=== PATIENT | female | born 2000 | race Caucasian/White ===

== ENCOUNTER 2025-02-03 08:42 | Emergency (ER) | payer OTHER, SELFPAY ==
[2025-02-03 08:45] VITALS: BP 152/88; PULSE 87; TEMP 37.1; O2SAT 98; BMI 38.3
--- NOTE | 2025-02-03 09:16 | ED.GENADUL1 ---
HPI HPI - General Adult General Chief complaint: Epistaxis Stated complaint: EAR PAIN Time Seen by Provider: 02/03/25 08:50 Source: patient Mode of arrival: ambulance Limitations: no limitations History of Present Illness HPI narrative: Patient is a 24-year-old female presenting to the emergency department via EMS for concerns of bleeding from the right ear. Patient states that over the last 3 days, she has been having increasing pain in the right ear and believes that she has an ear infection. She has been using Q-tips repeatedly, and noted bleeding just prior to arrival. She denies any loss of hearing, just notes moderate pain. She states she has no dizziness, nausea, vomiting, or vertigo. No changes in her vision, taste, or other systemic symptoms. No fevers or chills. She has not been on antibiotics recently. No history of trauma. Related Data Previous Rx's ?Medication ?Instructions ?Recorded amoxicillin 875 mg tablet 875 mg PO BID 5 days #10 tabs 02/03/25 Allergies Allergy/AdvReac Type Severity Reaction Status Date / Time No Known Drug Allergies Allergy Verified 02/03/25 08:50 Opioid HPI Opioid Management Most Recent Opioid Data: Last Pain Scale 4 Today, 08:45 Review of Systems ROS Status of ROS 10 or more systems reviewed and unremarkable except as noted in history and below PFSH PFSH Social History Little interest or pleasure in doing things: not at all Feeling down, depressed, or hopeless: not at all Exam Narrative Exam Narrative: CONSTITUTIONAL: Patient is unkempt, malodorous, and was covered in bedbugs. She is awake, alert, and has a flat affect but is answering questions/following commands appropriately. She is not responding to internal stimuli. She is calm and cooperative SKIN: Was warm and dry. EYES: Sclerae white. No conjunctival exudates. PERRLA. EOMI. EARS, NOSE, THROAT: There is dried blood surrounding the right external ear. The right external auditory canal is erythematous and mildly edematous without active bleeding. There is no foreign body. The right TM is non-erythematous, but has some mild bulging. There is no middle ear effusion visualized. No mastoid tenderness bilaterally. Left TM translucent, pear callaway color with landmarks intact. TMs without perforation bilaterally. RESPIRATORY: Clear to auscultation bilaterally, no wheezes, crackles, or stridor, no use of accessory muscles CARDIOVASCULAR: Normal rate and regular rhythm. There is no S3, S4, murmur, rub. GASTROINTESTINAL: Abdomen is nondistended. MUSCULOSKELETAL: No peripheral edema. NEUROLOGIC: Patient is awake and alert. Facies were symmetrical. Hearing equal bilaterally. Sensation intact to light touch in the V1/V2/V3 distribution of the face. Ambulates with a steady gait. No nystagmus. Finger-nose intact. Constitutional Vital Signs, click to edit/add: Last Vital Signs Temp 98.8 F 02/03/25 08:45 Pulse 87 02/03/25 08:45 Resp 18 02/03/25 08:45 BP 152/88 H 02/03/25 08:45 Pulse Ox 98 02/03/25 08:45 O2 Del Method Room Air 02/03/25 08:45 Course Vital Signs Vital signs: Vital Signs Temperature 98.8 F 02/03/25 08:45 Pulse Rate 87 02/03/25 08:45 Respiratory Rate 18 02/03/25 08:45 Blood Pressure 152/88 H 02/03/25 08:45 Pulse Oximetry 98 02/03/25 08:45 Oxygen Delivery Method Room Air 02/03/25 08:45 Temperature 98.8 F 02/03/25 08:45 Pulse Rate 87 02/03/25 08:45 Respiratory Rate 18 02/03/25 08:45 Blood Pressure 152/88 H 02/03/25 08:45 Pulse Oximetry 98 02/03/25 08:45 Oxygen Delivery Method Room Air 02/03/25 08:45 Medical Decision Making [facility] [place] Narrative Medical decision making narrative: Patient is a 24-year-old female presenting to the emergency department with a 3-day history of right sided ear pain, with mild bleeding starting just prior to arrival. Vital signs on arrival are significant for mild hypertension, otherwise were within normal limits. She is afebrile and hemodynamically stable. Her physical examination was consistent with right-sided otitis externa, possibly early otitis media. There is no evidence of TM perforation or effusion. She has no cranial nerve deficits, headache, or other systemic symptoms to suggest malignant otitis externa/significant inner ear infection/intracranial abscess. I do believe the patient is stable for discharge. I elected to treat her with oral amoxicillin 875 mg twice daily x 5 days. She was instructed her follow-up with her family doctor in the next 5 days should her symptoms persist/worsen. Return precautions were given including any new or concerning symptoms. She understands and agrees to the plan. FINAL IMPRESSION: Acute right otitis media DISPOSITION: Discharged home CONDITION: Good Discharge Plan Discharge Chief Complaint: Epistaxis Clinical Impression: Otitis media Qualifiers: Otitis media type: unspecified nonsuppurative Laterality: right Qualified Code(s): H65.91 - Unspecified nonsuppurative otitis media, right ear Patient Disposition: Home, Self-Care Time of Disposition Decision: 09:03 Condition: Good Mode of Transportation: EMS Prescriptions / Home Meds: New amoxicillin 875 mg tablet 875 mg PO BID 5 Days Qty: 10 0RF Print Language: Sinhala Instructions: Ear Infection (ED) Referrals: [facility] [Primary Care Provider] - 1 week
[2025-02-03 09:25] VITALS: BP 138/87; PULSE 75; O2SAT 99
== END 2025-02-03 09:25 | disposition home or self-care (01) ==
PROVIDERS: Emergency Provider Student in an Organized Health Care Education/Training Program
DX: H65.91 Unspecified nonsuppurative otitis media, right ear (principal)
CPT/HCPCS: 99283

== ENCOUNTER 2025-02-07 11:56 | Emergency (ER) | payer OTHER, SELFPAY ==
[2025-02-07 11:59] VITALS: BP 144/91; PULSE 87; TEMP 36.6; O2SAT 97; BMI 47.2
--- NOTE | 2025-02-07 12:20 | ED_ITS ---
HPI HPI - General Adult General Chief complaint: Eye Problems Stated complaint: EYE PAIN Time Seen by Provider: 02/07/25 12:03 Source: patient Mode of arrival: walk-in History of Present Illness HPI narrative: Patient is a 24-year-old female presenting to the emergency department for concerns of right eye redness. Patient states that she was diagnosed with an ear infection a couple days ago. She has been on amoxicillin for this. She states her ear is improved, however her right eye has had redness and drainage starting last night at 6 PM . She denies any other symptoms. She denies fevers or chills. No headache, change in her vision, photophobia, or any other concerning symptoms. Related Data Previous Rx's ?Medication ?Instructions ?Recorded amoxicillin 875 mg tablet 875 mg PO BID 5 days #10 tab s 02/03/25 polymyxin B sulfate 10,000 1 drp ophthalmic (eye) Q3H 7 days 02/07/25 unit-trimethoprim 1 mg/mL eye drops #10 mL Allergies Allergy/AdvReac Type Severity Reaction Status Date / Time No Known Drug Allergies Allergy Verified 02/03/25 08:50 Opioid HPI Opioid Management Most Recent Opioid Data: Last Pain Scale 4 02/03/25, 08:45 Review of Systems ROS Status of ROS 10 or more systems reviewed and unremark able except as noted in history and below PFSH PFSH Social History Little interest or pleasure in doing things: not at all Feeling down, depressed, or hopeless: not at all Exam Narrative Exam Narrative: CONSTITUTIONAL: Well-appearing, answering questions and following commands appropriately SKIN: Was warm and dry. EYES: The right eye has scleral injection with mild purulent drainage. EOMI. PERRLA. No ptosis. No periorbital edema. Visual acuity intact. EARS, NOSE, THROAT: Moist oral mucosa. Bilateral TMs are pearly callaway with no erythema or bulging. RESPIRATORY: Clear to auscultation bilaterally, no wheezes, crackles, or stridor, no use of accessory muscles CARDIOVASCULAR: Normal rate and regular rhythm. There is no S3, S4, murmur, rub. GASTROINTESTINAL: Abdomen is nondistended. MUSCULOSKELETAL: No peripheral edema. NEUROLOGIC: Patient is awake and alert. Facies were symmetrical. Constitutional Vital Signs, click to edit/add: Last Vital Signs Temp 97.8 F 02/07/25 11:59 Pulse 87 02/07/25 11:59 Resp 18 02/07/25 11:59 BP 144/91 H 02/07/25 11:59 Pulse Ox 97 02/07/25 11:59 O2 Del Method Room Air 02/07/25 11:59 Course Vital Signs Vital signs: Vital Signs Temperature 97.8 F 02/07/25 11:59 Pulse Rate 87 02/07/25 11:59 Respiratory Rate 18 02/07/25 11:59 Blood Pressure 144/91 H 02/07/25 11:59 Pulse Oximetry 97 02/07/25 11:59 Oxygen Delivery Method Room Air 02/07/25 11:59 Temperature 97.8 F 02/07/25 11:59 Pulse Rate 87 02/07/25 11:59 Respiratory Rate 18 02/07/25 11:59 Blood Pressure 144/91 H 02/07/25 11:59 Pulse Oximetry 97 02/07/25 11:59 Oxygen Delivery Method Room Air 02/07/25 11:59 Medical Decision Making MDM Narrative Medical decision making narrative: Patient is a 24-year-old female presenting to the emergency department for evaluation of right eye redness and discharge beginning last night at 6 PM. She is currently being treated for right otitis media. Vital signs on arrival are within normal limits. She is afebrile and hemodynamically stable. Examination as noted above. Patient's history and physical examination is consistent with viral versus bacterial conjunctivitis. She has an otherwise normal ocular examination and no periorbital edema/erythema to suggest more ominous pathology such as periorbital cellulitis. I do believe she is appropriate for outpatient treatment. She was given a prescription for polymyxin/trimethoprim eyedrops to be used 3 times da stu x 1 week. She was instructed to follow-up with her PCP for further care. Return precautions are given including any new or concerning symptoms. Patient understands and agrees to plan. FINAL IMPRESSION: #Acute right conjunctivitis DISPOSITION: Discharged home CONDITION: Good Medical Records Medical records reviewed: Yes I reviewed the patient's medical records Discharge Plan Discharge Chief Complaint: Eye Problems Clinical Impression: Conjunctivitis of right eye Patient Disposition: Home, Self-Care Time of Disposition Decision: 12:07 Condition: Good Mode of Transportation: Private Vehicle Prescriptions / Home Meds: New polymyxin B sulf-trimethoprim 10,000 unit- 1 mg/mL drops 1 drp ophthalmic (eye) Q3H 7 Days Qty: 10 0RF Rx Instructions: while awake; do not exceed 6 doses in 24 hours No Action amoxicillin 875 mg tablet 875 mg PO BID 5 Days Qty: 10 0RF Print Language: Greenlandic Instructions: Conjunctivitis (ED) Additional Instructions: Follow up PCP in 5 days if symptoms persist. Referrals: [facility] [Primary Care Provider] - 1 week Discharge Date/Time: 02/07/25 12:12
== END 2025-02-07 12:12 | disposition home or self-care (01) ==
PROVIDERS: Emergency Provider Student in an Organized Health Care Education/Training Program
DX: H10.9 Unspecified conjunctivitis (principal)
CPT/HCPCS: 99283